=== PATIENT | female | born 1990 | race Caucasian/White ===

== ENCOUNTER 2022-05-30 20:35 | Inpatient (IN) | payer OTHER ==
[~2022-05-30] VITALS: Ht 157.5 cm; Wt 75.0 kg
[2022-05-30] VITALS (12 sets, daily range): BP systolic 118–152; BP diastolic 58–89
[2022-05-30] MEDS ORDERED: LR 1,000 ML IV ONE (21:00)
[2022-05-30 21:11] LABS: HEMATOCRIT 33.4 % (36.0-47.0); HEMOGLOBIN 10.7 g/dl (12.0-15.5); MEAN CORPUSCULAR VOLUME 84.3 fl (80.0-96.0); PLATELET COUNT, AUTOMATED 403 10^3/uL (150-450); RED BLOOD COUNT 3.96 10^6/uL (4.00-5.40); WHITE BLOOD COUNT 17.5 10^3/uL (4.0-10.0)
[2022-05-30] MEDS ORDERED: LR 1,000 ML IV SCH ×2 (21:20)
[2022-05-30] MEDS ORDERED: OXYTOCIN INJ 10 UNITS/ML VIAL (J2590) IM PRN (21:20)
[2022-05-30] MEDS ORDERED: LIDOCAINE 1% MDV 20ML VIAL INFIL PRN (21:20)
[2022-05-30] MEDS ORDERED: METHYLERGONOVINE MALEATE 0.2 MG/ML VIAL (J2210) IM PRN (21:20)
[2022-05-30] MEDS ORDERED: OXYTOCIN INJ 10 UNITS/ML VIAL (J2590) IV PRN (21:20)
[2022-05-30] MEDS ORDERED: OXYTOCIN DRIP 30 UNITS in IV 1 EA IV SCH (21:20)
[2022-05-30] MEDS ORDERED: LACTATED RINGER'S 1000 ML IV STA (21:20)
[2022-05-30] MEDS ORDERED: TRANEXAMIC ACID INJection 1,000 MG in NS 100 ML IV PRN (21:20)
[2022-05-30] MEDS ORDERED: CARBOPROST TROMETHAMINE 250 MCG/ML AMP IM PRN (21:20)
[2022-05-30] MEDS ORDERED: OXYTOCIN DRIP 30 UNITS in IV 1 EA IV PRN ×6 (21:20)
[2022-05-30] MEDS ORDERED: FENTANYL 2MCG/ML ROPIVACAINE 0.2% IN 0.9% NACL 100ML IVBAG As Ordered ONE (21:31)
[2022-05-30] MEDS ORDERED: OXYTOCIN 30 UNITS IN 0.9% NaCl 500ML IV BAG (J2590) As Ordered ONE (21:31)
[2022-05-30] MEDS ORDERED: EPIDURAL/PCA KEYS XX PRN (21:50)
[2022-05-30] MEDS ORDERED: diphenhydrAMINE 50MG/ML VIAL (J1200) IV PRN (21:50)
[2022-05-30] MEDS ORDERED: FENTANYL/ROPIVACAINE/NACL BAG 100 ML EPIDURAL SCH (21:50)
[2022-05-30] MEDS ORDERED: ONDANSETRON 4MG 2ML VIAL IV PRN (21:50)
[2022-05-30] MEDS ORDERED: NALOXONE INJ 0.4MG/1ML VIAL (J2310 PER 1MG) IV PRN (21:50)
[2022-05-30] MEDS ORDERED: ePHEDrine SULFATE 25 MG/5 ML(5MG/ML) SYRINGE IVP PRN (21:50)
[2022-05-30] MEDS ORDERED: LR 500 ML IV PRN (21:50)
[2022-05-31] VITALS (35 sets, daily range): BP systolic 105–165; BP diastolic 51–85
[2022-05-31] MEDS ORDERED: TERBUTALINE SULFATE 1 MG/ML VIAL (J3105) SC STA (04:02)
[2022-05-31 09:08] LABS: CORD GAS ABE A -2.1; CORD GAS HCO3 A 22.9 MEQ/L; CORD GAS PCO2 A 40.5 mmHg; CORD GAS PH A 7.371 UNITS; CORD GAS PO2 A 24.5 mmHg; CORD GAS SBC A 21.7 MEQ/L; CORD GAS TCO2 A 24.2 MEQ/L
[2022-05-31 09:11] LABS: CORD GAS ABE V -1.8; CORD GAS HCO3 V 22.9 MEQ/L; CORD GAS O2 SAT V 64.7 %; CORD GAS PH V 7.386 UNITS; CORD GAS PO2 V 24.1 mmHg; CORD GAS TCO2 V 24.1 MEQ/L
[2022-05-31] MEDS ORDERED: DOCUSATE SODIUM 100MG CAPSULE PO PRN (09:30)
[2022-05-31] MEDS ORDERED: ACETAMINOPHEN TAB 650MG DOSE (2X325MG) PO PRN (09:30)
[2022-05-31] MEDS ORDERED: OXYTOCIN INJ 10 UNITS/ML VIAL (J2590) IV ONE (09:30)
[2022-05-31] MEDS ORDERED: RHOGAM 300 MCG (1500 IU) INJ (J2790) IM SCH (09:30)
[2022-05-31] MEDS ORDERED: ANUSOL HC CREAM 30GM TOP PRN (09:30)
[2022-05-31] MEDS ORDERED: METHYLERGONOVINE MALEATE 0.2 MG TAB PO PRN (09:30)
[2022-05-31] MEDS ORDERED: MOM 30ML SUSPENSION UDC PO PRN (09:30)
[2022-05-31] MEDS ORDERED: OXYTOCIN DRIP 30 UNITS in IV 1 EA IV SCH ×4 (09:30)
[2022-05-31] MEDS ORDERED: ACETAMINOPHEN 500 MG TAB PO PRN (09:30)
[2022-05-31] MEDS: LR 1,000 ML IV SCH ×2 (09:30→17:30)
[2022-05-31] MEDS ORDERED: TRANEXAMIC ACID INJection 1,000 MG in NS 100 ML IV ONE (09:30)
[2022-05-31] MEDS ORDERED: DIBUCAINE 1% OINTMENT 30GM TOP PRN (09:30)
[2022-05-31] MEDS: PRENATAL VITAMINS CHEWABLE TABLET PO SCH (09:51)
[2022-05-31] MEDS: IBUPROFEN 600MG TAB PO PRN ×2 (09:51→19:54)
[2022-06-01] MEDS: LR 1,000 ML IV SCH ×2 (01:30→09:30)
[2022-06-01 06:00] VITALS: BP 113/57
[2022-06-01 07:20] LABS: MEAN CORPUSCULAR HEMOGLOBIN 26.9 pg (27.0-33.0); MEAN CORPUSCULAR HGB CONC 31.3 g/dl (32.0-36.5); PLATELET COUNT, AUTOMATED 304 10^3/uL (150-450); RED BLOOD COUNT 3.72 10^6/uL (4.00-5.40); WHITE BLOOD COUNT 17.3 10^3/uL (4.0-10.0)
[2022-06-01] MEDS: PRENATAL VITAMINS CHEWABLE TABLET PO SCH (08:48)
[2022-06-01] MEDS: IBUPROFEN 600MG TAB PO PRN (08:49)
[2022-06-02] MEDS ORDERED: MEASLES,MUMPS,RUBELLA VACCINE INJ (MMR-II) (90707) SC.IMMUN ONE (09:00)
== END 2022-06-01 15:02 | disposition home or self-care (01) | DRG 807 ==
LOC: M LDO 20:35 → M LDI 21:19 → M OBS 05-31 11:16
PROVIDERS: ADMIT Obstetrics & Gynecology; ATTEND Obstetrics & Gynecology
PROC: 10E0XZZ Delivery of Products of Conception, External Approach (ICD-10-PCS; principal; 2022-05-31)
DX: O77.0 Labor and delivery complicated by meconium in amniotic fluid (principal); Z37.0 Single live birth; Z3A.39 39 weeks gestation of pregnancy

== ENCOUNTER 2022-08-23 22:55 | Inpatient (IN) | payer OTHER ==
[~2022-08-23] VITALS: Ht 157.5 cm; Wt 65.4 kg
[2022-08-23] MEDS ORDERED: OMEP-173 (23:44)
[2022-08-23] MEDS ORDERED: SERT25TA21 (23:44)
[2022-08-23 23:55] LABS: HEMATOCRIT 45.3 % (36.0-47.0); HEMOGLOBIN 14.8 g/dl (12.0-15.5); MEAN CORPUSCULAR HGB CONC 32.7 g/dl (32.0-36.5); MEAN CORPUSCULAR VOLUME 88.6 fl (80.0-96.0); PLATELET COUNT, AUTOMATED 437 10^3/uL (150-450); RED BLOOD COUNT 5.11 10^6/uL (4.00-5.40); WHITE BLOOD COUNT 11.9 10^3/uL (4.0-10.0)
[2022-08-24 00:18] LABS: ACETAMINOPHEN LEVEL < 2.0 UG/ML (10.0-30.0); ALBUMIN 4.3 GM/DL (3.2-5.2); ALT/SGPT 44 U/L (12-78); BILIRUBIN,DIRECT 0.1 MG/DL (0.0-0.2); BILIRUBIN,TOTAL 0.6 MG/DL (0.2-1.0); BLOOD UREA NITROGEN 16 MG/DL (7-18); CALCIUM LEVEL 10.1 MG/DL (8.5-10.1); CARBON DIOXIDE LEVEL 27 MEQ/L (21-32); CHLORIDE LEVEL 105 MEQ/L (98-107); CREATININE FOR GFR 0.84 MG/DL (0.55-1.30); ETHYL ALCOHOL (ETHANOL) < 0.003 % (0.000-0.010); GLOMERULAR FILTRATION RATE > 60.0 (>60); GLUCOSE, FASTING 101 MG/DL (70-100); HCG, SERUM QUANTITATIVE < 1.0 MIU/ML; POTASSIUM SERUM 4.3 MEQ/L (3.5-5.1); SALICYLATE LEVEL < 1.7 MG/DL (5.0-30.0); SODIUM LEVEL 139 MEQ/L (136-145); THYROID STIMULATING HORMONE 0.934 uIU/ML (0.358-3.740); TOTAL PROTEIN 7.9 GM/DL (6.4-8.2)
[2022-08-24 00:30] LABS: AMPHETAMINES LEVEL URINE NEGATIVE (NEGATIVE); BARBITURATES URINE NEGATIVE (NEGATIVE); BENZODIAZEPINES URINE NEGATIVE (NEGATIVE); CANNABINOIDS URINE NEGATIVE (NEGATIVE); COCAINE METABOLITE URINE NEGATIVE (NEGATIVE); METHADONE URINE NEGATIVE (NEGATIVE); OPIATES URINE NEGATIVE (NEGATIVE); PHENCYCLIDINE URINE NEGATIVE (NEGATIVE)
[2022-08-24] MEDS ORDERED: OMEP-173 PO (05:17)
[2022-08-24] MEDS ORDERED: NORE0.353 PO (05:17)
[2022-08-24] MEDS ORDERED: VITA100093 PO (05:17)
[2022-08-24] MEDS ORDERED: IBUP1TAB7 PO (05:17)
[2022-08-24] MEDS ORDERED: ZYRT10TA12 PO (05:17)
[2022-08-24] MEDS ORDERED: LORA-674 PO (05:17)
[2022-08-24] MEDS ORDERED: C 50TAB PO (05:17)
[2022-08-24] MEDS ORDERED: ZOLO50TA PO (05:17)
[2022-08-24] MEDS ORDERED: VITMTA PO (05:17)
[2022-08-24] MEDS ORDERED: HOME MED LIST COMPLETE! XX SCH (05:20)
[2022-08-24] MEDS ORDERED: LORATADINE 10 MG TAB PO SCH (09:55)
[2022-08-24] MEDS ORDERED: IBUPROFEN 600MG TAB PO ONE (09:55)
[2022-08-24] MEDS: SERTRALINE HCL 50 MG TAB PO SCH (10:21)
[2022-08-24] MEDS: MULTIVITAMINS/MINERALS THERAP 1 TAB PO SCH (10:21)
[2022-08-24] MEDS: OMEPRAZOLE 20MG CAP PO SCH (10:21)
[2022-08-24] MEDS: VITAMIN D 1,000 INTERNATIONAL UNITS TABLET PO SCH (10:22)
[2022-08-25] MEDS: SERTRALINE HCL 50 MG TAB PO SCH (08:08)
[2022-08-25] MEDS: MULTIVITAMINS/MINERALS THERAP 1 TAB PO SCH (08:08)
[2022-08-25] MEDS: VITAMIN D 1,000 INTERNATIONAL UNITS TABLET PO SCH (08:09)
[2022-08-25] MEDS: OMEPRAZOLE 20MG CAP PO SCH (08:09)
[2022-08-25] MEDS: ASCORBIC ACID 500 MG TAB PO SCH (09:00)
[2022-08-25] MEDS ORDERED: CETIRIZINE (ZyrTEC) 10 MG TAB PO SCH (09:00)
[2022-08-25] MEDS ORDERED: MAALOX 30 ML SUSP *UDC PO PRN (14:00)
[2022-08-25 18:31] VITALS: BP 140/84
[2022-08-25] MEDS: MOM 30ML SUSPENSION UDC PO PRN (20:18)
[2022-08-25] MEDS: IBUPROFEN 800 MG TAB PO PRN (20:24)
[2022-08-25] MEDS: traZODone 50 MG TAB PO PRN (21:29)
[2022-08-25 22:30] VITALS: BP 136/90
[2022-08-25] MEDS ORDERED: guaiFENesin DM LIQ 10ML UD PO PRN (23:00)
[2022-08-25] MEDS ORDERED: CEPACOL LOZENGE PO PRN (23:00)
[2022-08-26] MEDS: FLUTICASONE PROP 0.05% NASAL SPRAY 16 GM (FLONASE) NARES SCH ×2 (00:20→08:28)
[2022-08-26 06:40] VITALS: BP 112/62
[2022-08-26] MEDS: VITAMIN D 1,000 INTERNATIONAL UNITS TABLET PO SCH (08:31)
[2022-08-26] MEDS: ASCORBIC ACID 500 MG TAB PO SCH (08:31)
[2022-08-26] MEDS: CETIRIZINE (ZyrTEC) 10 MG TAB PO SCH (08:31)
[2022-08-26] MEDS: OMEPRAZOLE 20MG CAP PO SCH (08:31)
[2022-08-26] MEDS: LORATADINE 10 MG TAB PO SCH (08:32)
[2022-08-26] MEDS: MULTIVITAMINS/MINERALS THERAP 1 TAB PO SCH (08:32)
[2022-08-26] MEDS: IBUPROFEN 800 MG TAB PO PRN ×2 (08:33→20:42)
[2022-08-26] MEDS ORDERED: FLUTICASONE PROP 0.05% NASAL SPRAY 16 GM (FLONASE) NARES SCH (09:00)
[2022-08-26] MEDS ORDERED: SERTRALINE HCL 50 MG TAB PO SCH (09:00)
[2022-08-26] MEDS ORDERED: RAMELTEON 8 MG TAB (ROZEREM) PO PRN (13:00)
[2022-08-26] MEDS: busPIRone 5 MG TAB PO SCH ×2 (16:55→20:41)
[2022-08-26 18:21] VITALS: BP 121/68
[2022-08-26] MEDS: MOM 30ML SUSPENSION UDC PO PRN (19:14)
[2022-08-26] MEDS: traZODone 50 MG TAB PO PRN (23:23)
[2022-08-27 06:47] VITALS: BP 112/58
[2022-08-27] MEDS ORDERED: CETIRIZINE (ZyrTEC) 10 MG TAB PO SCH (09:00)
[2022-08-27] MEDS: VITAMIN D 1,000 INTERNATIONAL UNITS TABLET PO SCH (09:38)
[2022-08-27] MEDS: ASCORBIC ACID 500 MG TAB PO SCH (09:38)
[2022-08-27] MEDS: OMEPRAZOLE 20MG CAP PO SCH (09:39)
[2022-08-27] MEDS: MULTIVITAMINS/MINERALS THERAP 1 TAB PO SCH (09:39)
[2022-08-27] MEDS: SERTRALINE 100 MG TAB PO SCH (09:39)
[2022-08-27] MEDS: CETIRIZINE (ZyrTEC) 10 MG TAB PO SCH (09:39)
[2022-08-27] MEDS: busPIRone 5 MG TAB PO SCH ×3 (09:39→21:00)
[2022-08-27] MEDS: FLUTICASONE PROP 0.05% NASAL SPRAY 16 GM (FLONASE) NARES SCH (09:40)
[2022-08-27] MEDS: IBUPROFEN 800 MG TAB PO PRN (16:49)
[2022-08-27 18:00] VITALS: BP 137/83
[2022-08-27] MEDS: traZODone 50 MG TAB PO PRN (22:51)
[2022-08-27] MEDS: RAMELTEON 8 MG TAB (ROZEREM) PO SCH (22:51)
[2022-08-28 06:28] VITALS: BP 116/56
[2022-08-28] MEDS: ASCORBIC ACID 500 MG TAB PO SCH (08:37)
[2022-08-28] MEDS: VITAMIN D 1,000 INTERNATIONAL UNITS TABLET PO SCH (08:39)
[2022-08-28] MEDS: SERTRALINE 100 MG TAB PO SCH (08:39)
[2022-08-28] MEDS: busPIRone 5 MG TAB PO SCH ×3 (08:39→21:16)
[2022-08-28] MEDS: MULTIVITAMINS/MINERALS THERAP 1 TAB PO SCH (08:39)
[2022-08-28] MEDS: OMEPRAZOLE 20MG CAP PO SCH (08:39)
[2022-08-28] MEDS: LORATADINE 10 MG TAB PO SCH (08:39)
[2022-08-28] MEDS: CETIRIZINE (ZyrTEC) 10 MG TAB PO SCH (08:39)
[2022-08-28] MEDS: FLUTICASONE PROP 0.05% NASAL SPRAY 16 GM (FLONASE) NARES SCH (08:39)
[2022-08-28 16:43] VITALS: BP 134/79
[2022-08-28] MEDS: traZODone 50 MG TAB PO PRN (23:34)
[2022-08-28] MEDS: ALBUTEROL 90 MCG/ACT 8GM HFA INHALER INH PRN (23:34)
[2022-08-28] MEDS: RAMELTEON 8 MG TAB (ROZEREM) PO SCH (23:34)
[2022-08-29 06:42] VITALS: BP 115/66
[2022-08-29] MEDS: FLUTICASONE PROP 0.05% NASAL SPRAY 16 GM (FLONASE) NARES PRN (08:48)
[2022-08-29] MEDS: VITAMIN D 1,000 INTERNATIONAL UNITS TABLET PO SCH (08:49)
[2022-08-29] MEDS: CETIRIZINE (ZyrTEC) 10 MG TAB PO SCH (08:49)
[2022-08-29] MEDS: busPIRone 5 MG TAB PO SCH ×3 (08:49→21:02)
[2022-08-29] MEDS: OMEPRAZOLE 20MG CAP PO SCH (08:49)
[2022-08-29] MEDS: MULTIVITAMINS/MINERALS THERAP 1 TAB PO SCH (08:49)
[2022-08-29] MEDS: SERTRALINE 100 MG TAB PO SCH (08:49)
[2022-08-29] MEDS: ASCORBIC ACID 500 MG TAB PO SCH (08:50)
[2022-08-29] MEDS: IBUPROFEN 800 MG TAB PO PRN ×2 (14:38→21:04)
[2022-08-29 16:28] VITALS: BP 130/65
[2022-08-30] MEDS: ALBUTEROL 90 MCG/ACT 8GM HFA INHALER INH PRN ×2 (00:12→20:39)
[2022-08-30] MEDS: traZODone 50 MG TAB PO PRN ×2 (00:12→23:13)
[2022-08-30] MEDS: RAMELTEON 8 MG TAB (ROZEREM) PO SCH ×2 (00:12→23:13)
[2022-08-30 06:51] VITALS: BP 134/63
[2022-08-30] MEDS: ASCORBIC ACID 500 MG TAB PO SCH (09:56)
[2022-08-30] MEDS: VITAMIN D 1,000 INTERNATIONAL UNITS TABLET PO SCH (09:56)
[2022-08-30] MEDS: LORATADINE 10 MG TAB PO SCH (09:56)
[2022-08-30] MEDS: CETIRIZINE (ZyrTEC) 10 MG TAB PO SCH (09:56)
[2022-08-30] MEDS: SERTRALINE 100 MG TAB PO SCH (09:56)
[2022-08-30] MEDS: busPIRone 5 MG TAB PO SCH ×3 (09:57→20:39)
[2022-08-30] MEDS: OMEPRAZOLE 20MG CAP PO SCH (09:57)
[2022-08-30] MEDS: MULTIVITAMINS/MINERALS THERAP 1 TAB PO SCH (09:57)
[2022-08-30 18:00] VITALS: BP 150/67
[2022-08-30] MEDS: FLUTICASONE PROP 0.05% NASAL SPRAY 16 GM (FLONASE) NARES PRN (20:39)
[2022-08-31 06:38] VITALS: BP 121/68
[2022-08-31] MEDS: ASCORBIC ACID 500 MG TAB PO SCH (09:00)
[2022-08-31] MEDS: SERTRALINE 100 MG TAB PO SCH (09:00)
[2022-08-31] MEDS: MULTIVITAMINS/MINERALS THERAP 1 TAB PO SCH (09:00)
[2022-08-31] MEDS: VITAMIN D 1,000 INTERNATIONAL UNITS TABLET PO SCH (09:00)
[2022-08-31] MEDS: busPIRone 5 MG TAB PO SCH ×2 (09:00→15:08)
[2022-08-31] MEDS: OMEPRAZOLE 20MG CAP PO SCH (09:00)
[2022-08-31] MEDS: CETIRIZINE (ZyrTEC) 10 MG TAB PO SCH (09:00)
[2022-08-31] MEDS ORDERED: BUSP5TA PO (10:21)
[2022-08-31] MEDS ORDERED: RAME8TAB2 PO (10:21)
[2022-08-31] MEDS ORDERED: ZOLO100T PO (10:21)
[2022-08-31] MEDS ORDERED: TRAZ-252 PO (10:21)
== END 2022-08-31 15:15 | disposition home or self-care (01) | DRG 885 ==
LOC: M ED 22:55 → EDBD 22:55 → M ED INP 08-25 13:59 → M PSY 08-25 16:35
PROVIDERS: ADMIT Student in an Organized Health Care Education/Training Program; ATTEND Student in an Organized Health Care Education/Training Program
DX: F33.1 Major depressive disorder, recurrent, moderate (principal); F41.1 Generalized anxiety disorder; F53.0 Postpartum depression; K21.9 Gastro-esophageal reflux disease without esophagitis; Z20.822 Contact with and (suspected) exposure to COVID-19; Z79.899 Other long term (current) drug therapy; G47.00 Insomnia, unspecified